=== PATIENT | female | born 1965 | race Native Hawaiian/Other Pacific Islander ===

== ENCOUNTER 2017-07-22 08:52 | Emergency (ER) | payer OTHER ==
[~2017-07-22] VITALS: Ht 162.6 cm; Wt 113.4 kg
[2017-07-22 08:53] VITALS: TEMP 98.3
[2017-07-22 12:50] VITALS: BP 174/88
== END 2017-07-22 12:50 | disposition home or self-care (01) ==
LOC: ED 08:52
DX: S60.012A Contusion of left thumb without damage to nail, initial encounter (principal); W54.0XXA Bitten by dog, initial encounter; Y93.89 Activity, other specified; Y92.89 Other specified places as the place of occurrence of the external cause; Y99.8 Other external cause status
CPT/HCPCS: 90471; 90715; 99283; J0696; J7040

== ENCOUNTER 2017-07-24 11:15 | Emergency (ER) | payer OTHER ==
[~2017-07-24] VITALS: Ht 162.6 cm; Wt 90.7 kg
[2017-07-24 12:12] VITALS: BP 180/79; TEMP 97.2
== END 2017-07-24 12:15 | disposition home or self-care (01) ==
LOC: ED 11:15
DX: Z09 Encounter for follow-up examination after completed treatment for conditions other than malignant neoplasm (principal)

== ENCOUNTER 2017-08-12 12:06 | Outpatient (CLI) | payer OTHER | END 2017-08-12 21:42 | disposition home or self-care (01) | LOC: RAD 12:06 | DX: M79.645 Pain in left finger(s) (principal) ==

== ENCOUNTER 2019-05-11 11:10 | Emergency (ER) | payer OTHER ==
[~2019-05-11] VITALS: Ht 162.6 cm; Wt 113.4 kg
[2019-05-11 11:50] LABS: PLATELET COUNT 241 K/uL (152-353)
[2019-05-11 11:57] LABS: POTASSIUM 3.9 mmol/L (3.6-5.2)
[2019-05-11 13:20] VITALS: BP 157/91; TEMP 98
== END 2019-05-11 13:20 | disposition short-term general hospital (02) ==
LOC: ED 11:15
PROVIDERS: Family Medicine
DX: R07.89 Other chest pain (principal); R79.89 Other specified abnormal findings of blood chemistry
CPT/HCPCS: 36415; 80053; 81000; 82550; 82553; 84484; 85027; 93005; 99285

== ENCOUNTER 2021-08-07 12:45 | Emergency (ER) | payer OTHER ==
[~2021-08-07] VITALS: Ht 162.6 cm; Wt 96.6 kg
[2021-08-07 12:59] VITALS: BP 196/98; TEMP 97.3
== END 2021-08-07 18:10 | disposition home or self-care (01) ==
LOC: ED 12:45
PROC: 0HQGXZZ Repair Left Hand Skin, External Approach (ICD-10-PCS; principal; 2021-08-07)
PROC: 0HQDXZZ Repair Right Lower Arm Skin, External Approach (ICD-10-PCS; 2021-08-07)
DX: S51.851A Open bite of right forearm, initial encounter (principal); S61.251A Open bite of left index finger without damage to nail, initial encounter; W54.0XXA Bitten by dog, initial encounter; Y92.89 Other specified places as the place of occurrence of the external cause
CPT/HCPCS: 99283; C1729; J7040

== ENCOUNTER 2021-08-10 09:46 | Emergency (ER) | payer OTHER ==
[~2021-08-10] VITALS: Ht 162.6 cm; Wt 96.6 kg
[2021-08-10 11:40] VITALS: BP 162/84; TEMP 97.8
== END 2021-08-10 11:40 | disposition home or self-care (01) ==
LOC: ED 09:46
DX: Z51.89 Encounter for other specified aftercare (principal); J32.8 Other chronic sinusitis; F17.210 Nicotine dependence, cigarettes, uncomplicated